=== PATIENT | female | born 1975 | race African-American/Black ===

== ENCOUNTER 2017-07-12 17:48 | Emergency (ER) | payer OTHER ==
[~2017-07-12] VITALS: Ht 160 cm; Wt 55.0 kg
[~2017-07-12 17:48] MED LIST: CYCL1PAK PO; IBUP800T23 PO
[2017-07-12 17:50] VITALS: BP 121/69; PULSE 89; RESP 16; TEMP 98; O2SAT 100
--- NOTE | 2017-07-12 18:40 | PD ---
HPI . Insect bite Chief Complaint: Skin Problem Time Seen by Provider: 18:32 Travel History International Travel<30 days: No Contact w/Intl Traveler<30days: No Traveled to known affect area: No History of Present Illness HPI This patient presents complaining with an insect bite to her left ankle. Onset was sometime today. She states that she just noticed itching and swelling of her ankle. She did not actually see or feel a bite. She has not done anything for prior to arrival. She does not have any systemic symptoms such as dyspnea or nausea. In addition, the patient would like to be evaluated for stress in her neck. She states that this is been an ongoing problem for quite some time. She states that she has not seen a primary care provider because she does not have one. PFSH Past Medical History Blood Disorders: No Cancer: No Cardiovascular Problems: No Diminished Hearing: No Endocrine: No Gastrointestinal Disorders: No Genitourinary: Yes Headaches: Yes Immune Disorder: No Musculoskeletal: Yes (bulging discs, chronic back pain, carpal tunnel) Neurologic: Yes Reproductive: Yes Respiratory: Yes Immunizations Current: No ?: Not LMP: 05/2017 Ovarian Cysts: Yes Past Surgical History Other Surgery: No Social History Alcohol Use: Yes (wine, rare) Tobacco Use: Yes (1/2 ppd) Substance Use: No Allergies-Medications (Allergen,Severity, Reaction): Coded Allergies: No Known Allergies (Verified Adverse Reaction, Unknown, 07/12/17) Reported Meds & Prescriptions Reported Meds & Active Scripts Active Reported Cyclobenzaprine Hcl (Cyclobenzaprine HCl) 10 Mg Tab 10 Mg PO BID Ibuprofen 800 Mg Tab 800 Mg PO Q6H PRN Review of Systems Except as stated in HPI: all other systems reviewed are Neg Physical Exam Narrative GENERAL: Awake and alert and in no acute distress. She ambulates in without difficulty. SKIN: Warm and dry. Erythema and swelling over the lateral malleolus compatible with an insect bite. HEAD: Normocephalic/atraumatic. EYES: Pupils are equal. Extraocular movements are intact. NECK: Normal range of motion. CARDIOVASCULAR: Regular rate and rhythm. RESPIRATORY: Nonlabored respirations. MUSCULOSKELETAL: Atraumatic. NEUROLOGICAL: Nonfocal. PSYCHIATRIC: Appropriate mood and affect. Data Data Last Documented VS Vital Signs Date Time Temp Pulse Resp B/P (MAP) Pulse Ox O2 Delivery O2 Flow Rate FiO2 07/12/17 17:50 98.0 89 16 121/69 (86) 100 Room Air Orders Orders Ed Discharge Order (07/12/17 18:36) MDM Medical Decision Making Medical Screen Exam Complete: Yes Emergency Medical Condition: Yes Differential Diagnosis The differential diagnosis of the skin rash includes but is not limited to allergic urticaria, scabies, insect bites, contact dermatitis Narrative Course This patient presents with a pruritic rash on the left lateral malleolus. It looks like a bug bite. She has not done anything at home for it prior to presentation. I have instructed her to take Benadryl as needed for the itching and to use hydrocortisone cream on the bite. This patient also wants to be evaluated for chronic neck pain. I have suggested that she go to the [facility]. Diagnosis Primary Impression: Insect bite Qualified Codes: W57.XXXA - Bitten or stung by nonvenomous insect and other nonvenomous arthropods, initial encounter Referrals: [facility] Patient Instructions: General Instructions, Insect Bite or Sting (ED) Departure Forms: Tests/Procedures Additional Instructions: Benadryl 2 every 4 hours for itching. Hydrocortisone cream 2-3 times per day. Disposition: 01 DISCHARGE HOME Condition: Stable Liset Urbano MD Jul 12, 2017 18:40
[2017-07-12 19:01] VITALS: BP 109/78; TEMP 97.8
== END 2017-07-12 19:02 | disposition home or self-care (01) ==
LOC: NEPD 17:48
DX: S90.562A Insect bite (nonvenomous), left ankle, initial encounter (principal); M54.2 Cervicalgia; G89.29 Other chronic pain; F17.200 Nicotine dependence, unspecified, uncomplicated; W57.XXXA Bitten or stung by nonvenomous insect and other nonvenomous arthropods, initial encounter
CPT/HCPCS: 99282